=== PATIENT | female | born 1965 | race Caucasian/White ===

== ENCOUNTER → 2017-07-06 | Outpatient (CLI) | payer OTHER ==
[~2017-07-06] MED LIST: BONTRIL; PHENERGAN25 MG PO; PREVACID15 MG PO
== END | disposition home or self-care (01) ==
LOC: RAD 13:02
DX: J32.0 Chronic maxillary sinusitis (principal)

== ENCOUNTER 2020-07-24 08:52 | Outpatient (CLI) | payer OTHER | END 2020-07-24 09:01 | disposition home or self-care (01) | LOC: RAD 08:52 | PROVIDERS: ATTEND General Practice | DX: I10 Essential (primary) hypertension (principal); Z87.891 Personal history of nicotine dependence; Z13.89 Encounter for screening for other disorder; Z13.220 Encounter for screening for lipoid disorders; Z11.3 Encounter for screening for infections with a predominantly sexual mode of transmission; Z12.11 Encounter for screening for malignant neoplasm of colon; Z13.1 Encounter for screening for diabetes mellitus; Z13.228 Encounter for screening for other metabolic disorders ==

== ENCOUNTER → 2020-08-05 | Outpatient (CLI) | payer OTHER | END | disposition home or self-care (01) | LOC: MAMO-SONO 12:04 | PROVIDERS: ATTEND General Practice | DX: Z13.89 Encounter for screening for other disorder (principal); Z87.891 Personal history of nicotine dependence; Z13.220 Encounter for screening for lipoid disorders; Z11.3 Encounter for screening for infections with a predominantly sexual mode of transmission; Z12.11 Encounter for screening for malignant neoplasm of colon; Z13.1 Encounter for screening for diabetes mellitus; N64.59 Other signs and symptoms in breast; Z12.39 Encounter for other screening for malignant neoplasm of breast ==

== ENCOUNTER 2020-10-06 07:47 | Outpatient (CLI) | payer OTHER | END 2020-10-06 08:05 | disposition home or self-care (01) | LOC: SONOGRAMA 07:47 → MAMO-SONO 08:15 | PROVIDERS: ATTEND General Practice | DX: N64.89 Other specified disorders of breast (principal); N60.02 Solitary cyst of left breast; R73.09 Other abnormal glucose; R73.01 Impaired fasting glucose; E78.49 Other hyperlipidemia; M79.641 Pain in right hand; R22.31 Localized swelling, mass and lump, right upper limb ==

== ENCOUNTER 2021-04-19 17:47 | Emergency (ER) | payer OTHER ==
[~2021-04-19] VITALS: Ht 154.9 cm; Wt 85.3 kg
[2021-04-19] MEDS ORDERED: PYRIDIUM200 MG PO (23:23)
[2021-04-19] MEDS ORDERED: KETO10TA2 PO (23:24)
== END 2021-04-19 23:34 | disposition home or self-care (01) ==
LOC: ER 17:47
DX: N30.90 Cystitis, unspecified without hematuria (principal); N39.0 Urinary tract infection, site not specified

== ENCOUNTER 2021-04-27 07:13 | Outpatient (CLI) | payer OTHER ==
[~2021-04-27 07:13] MED LIST changes: +KETO10TA2 PO; +PYRIDIUM200 MG PO
== END 2021-04-27 07:32 | disposition home or self-care (01) ==
LOC: SONOGRAMA 07:13
PROVIDERS: ATTEND General Practice
DX: K76.0 Fatty (change of) liver, not elsewhere classified (principal); K29.00 Acute gastritis without bleeding; N39.0 Urinary tract infection, site not specified; M79.18 Myalgia, other site; R10.84 Generalized abdominal pain

== ENCOUNTER → 2022-09-20 | Outpatient (CLI) | payer OTHER | END | disposition home or self-care (01) | LOC: SONOGRAMA 08:22 | PROVIDERS: ATTEND General Practice | DX: R30.0 Dysuria (principal); R39.16 Straining to void ==

== ENCOUNTER 2022-10-25 08:09 | Outpatient (CLI) | payer OTHER | END 2022-10-25 08:25 | disposition home or self-care (01) | LOC: MAMO-SONO 08:09 | PROVIDERS: ATTEND General Practice | DX: Z12.31 Encounter for screening mammogram for malignant neoplasm of breast (principal); Z12.39 Encounter for other screening for malignant neoplasm of breast; N64.9 Disorder of breast, unspecified ==

== ENCOUNTER 2022-11-06 12:24 | Emergency (ER) | payer OTHER ==
[~2022-11-06] VITALS: Ht 162.6 cm; Wt 88.5 kg
[2022-11-06] MEDS ORDERED: LOSARTAN POTASS25 MG PO (12:36)
[2022-11-06] MEDS ORDERED: ATORVASTATIN CA20 MG PO (12:36)
== END 2022-11-06 16:13 | disposition home or self-care (01) ==
LOC: ER 12:24
DX: R07.9 Chest pain, unspecified (principal)

== ENCOUNTER 2023-02-22 08:10 | Outpatient (CLI) | payer OTHER ==
[~2023-02-22 08:10] MED LIST changes: +ATORVASTATIN CA20 MG PO; +LOSARTAN POTASS25 MG PO
== END 2023-02-22 08:23 | disposition home or self-care (01) ==
LOC: SONOGRAMA 08:10
PROVIDERS: ATTEND Specialist/Technologist, Other Nephrology
DX: I12.9 Hypertensive chronic kidney disease with stage 1 through stage 4 chronic kidney disease, or unspecified chronic kidney disease (principal); N18.1 Chronic kidney disease, stage 1

== ENCOUNTER 2024-08-07 07:13 | Outpatient (CLI) | payer OTHER | END 2024-08-07 07:14 | disposition home or self-care (01) | LOC: NUCLEAR 07:13 | PROVIDERS: ATTEND General Practice | DX: I83.813 Varicose veins of bilateral lower extremities with pain (principal) ==

== ENCOUNTER 2024-10-31 09:00 | Emergency (ER) | payer OTHER ==
[~2024-10-31] VITALS: Ht 154.9 cm; Wt 86.2 kg
[2024-10-31 09:05] VITALS: BP 139/84; O2SAT 99
[2024-10-31] MEDS ORDERED: JARDIANCE10 MG (09:10)
[2024-10-31] MEDS ORDERED: KETOROLAC TROMETHAMINE 60 MG VIAL IM STA (09:32)
[2024-10-31] MEDS ORDERED: KETOROLAC TROMETHAMINE 60 MG VIAL IM ONE (09:34)
[2024-10-31 10:37] LABS: BASO % 0.4 % (0.1-1.2); EOS # 0.02 (0.04-0.54); EOS % 0.4 % (0.7-7.0); HEMATOCRIT 46.7 % (34.1-44.9); LYMPH # 0.46 (1.18-3.74); LYMPH % 8.4 % (19.3-53.1); MONO # 0.59 (0.24-0.82); MONO % 10.8 % (4.7-12.5); NEUT # 4.37 (1.56-6.13); NEUT % 79.6 % (34.0-71.1); PLATELET COUNT 223 K/uL (163-369); RED BLOOD COUNT 5.18 M/uL (3.93-5.22); RED CELL DISTRIBUTION WIDTH 13.2 % (11.6-14.4)
[2024-10-31 11:00] LABS: CALCIUM 9.1 mg/dL (8.5-10.1); CREATININE SERUM 0.71 mg/dL (0.55-1.02); GFR 84.85; POTASSIUM 3.54 mEq/L (3.5-5.1)
== END 2024-10-31 12:13 | disposition home or self-care (01) ==
LOC: ER 09:00
PROVIDERS: General Practice
DX: B34.9 Viral infection, unspecified (principal); I10 Essential (primary) hypertension

== ENCOUNTER 2025-02-25 08:20 | Outpatient (CLI) | payer OTHER ==
[~2025-02-25 08:20] MED LIST changes: +JARDIANCE10 MG
== END 2025-02-25 08:23 | disposition home or self-care (01) ==
LOC: MAMO-SONO 08:20
PROVIDERS: ATTEND Specialist
DX: N63.0 Unspecified lump in unspecified breast (principal); Z12.31 Encounter for screening mammogram for malignant neoplasm of breast; E04.1 Nontoxic single thyroid nodule

== ENCOUNTER 2025-03-04 09:19 | Outpatient (CLI) | payer OTHER | END 2025-03-04 09:21 | disposition home or self-care (01) | LOC: NUCLEAR 09:19 | PROVIDERS: ATTEND Specialist | DX: M81.0 Age-related osteoporosis without current pathological fracture (principal) ==

== ENCOUNTER 2025-06-05 15:17 | Emergency (ER) | payer OTHER ==
[~2025-06-05] VITALS: Ht 162.6 cm; Wt 86.2 kg
[2025-06-05 19:31] LABS: BASO % 0.7 % (0.1-1.2); EOS # 0.21 (0.04-0.54); EOS % 2.0 % (0.7-7.0); LYMPH # 2.29 (1.18-3.74); LYMPH % 21.5 % (19.3-53.1); MEAN PLATELET VOLUME 9.70 fl (9.4-12.4); MONO # 0.93 (0.24-0.82); MONO % 8.7 % (4.7-12.5); NEUT # 7.09 (1.56-6.13); NEUT % 66.7 % (34.0-71.1); RED CELL DISTRIBUTION WIDTH 13.3 % (11.6-14.4)
[2025-06-05 19:44] LABS: COVID-19 AG NEGATIVE (NEGATIVE)
[2025-06-05 20:00] LABS: ALT/SGPT 80.0 U/L (12-78); AST/SGOT 53.0 U/L (15-37); BILIRUBIN TOTAL 0.35 mg/dL (0.3-1.2); BUN CREA RATIO 30.0 (7.0-25.0); CREATININE SERUM 0.83 mg/dL (0.55-1.02); GFR 70.86; GLOBULINA 3.4 G/DL (2.4-3.5); GLUCOSE FASTING 118.0 mg/dL (65-100); OSMOLALITY SERUM 285.0 MOSM/KG (275-295)
[2025-06-05] MEDS ORDERED: FAMOTIDINE/PF 20 MG/2 ML VIAL IV STA (20:38)
[2025-06-05] MEDS ORDERED: 0.9 % SODIUM CHLORIDE 1,000 ML IV STA (20:38)
[2025-06-05] MEDS ORDERED: CEFTRIAXONE SODIUM 1,000 MG VIAL IM STA (20:38)
[2025-06-05] MEDS ORDERED: ZITHROMAX500 MG PO (21:15)
[2025-06-05] MEDS ORDERED: MUCINEX D ER 11 EACH PO (21:15)
== END 2025-06-05 22:43 | disposition home or self-care (01) ==
LOC: ER 15:18
PROVIDERS: Physician Assistant Medical
DX: J06.9 Acute upper respiratory infection, unspecified (principal); Z20.822 Contact with and (suspected) exposure to COVID-19